=== PATIENT | female | born 1970 | race Two or more races ===

== ENCOUNTER 2022-04-07 14:57 | Inpatient (IN) | payer MEDICAID, OTHER ==
[~2022-04-07] VITALS: Ht 162.6 cm; Wt 101.2 kg
[~2022-04-07 14:57] MED LIST: AMOX1TAB16 PO; CLON.2P TD; HALO5TAB23 PO; HYDR25TA84 PO; PROZ20 PO
[2022-04-07 15:50] LABS: COVID AG,FIA SOURCE NASAL SWAB
[2022-04-07 15:55] LABS: BASOPHILS % (AUTO) 0.9 % (0.0-2.0); EOSINOPHILS % (AUTO) 1.2 % (1.0-6.0); HEMATOCRIT 35.5 % (36-46); HEMOGLOBIN 12.1 g/dL (12.0-16.0); LYMPHOCYTES # (AUTO) 1.2 K/uL (1.0-4.8); LYMPHOCYTES % (AUTO) 17.2 % (22.0-44.0); MEAN CORPUSCULAR HEMOGLOBIN 30.9 pg (26.0-34.0); MEAN CORPUSCULAR HGB CONC 34.1 G/dL (31.0-37.0); MEAN CORPUSCULAR VOLUME 91 fL (80-100); MONOCYTES # (AUTO) 0.5 K/uL (0.1-1.0); MONOCYTES % (AUTO) 6.9 % (2.0-9.0); NEUTROPHILS # (AUTO) 4.9 K/uL (1.8-7.7); NEUTROPHILS % (AUTO) 73.8 % (40.0-70.0); PLATELET COUNT (AUTO) 341 K/uL (150-450); RED BLOOD CELL COUNT(AUTO) 3.91 MIL/uL (4.00-5.20); RED CELL DISTRIBUTION WIDTH 12.6 % (11.5-14.5)
[2022-04-07 15:58] LABS: ANION GAP 11 mmol/L (8-16); CALCIUM, TOTAL 8.6 mg/dL (8.8-10.5); CARBON DIOXIDE 24 mmol/L (22-29); CHLORIDE 100 mmol/L (98-107); CREATININE 0.92 mg/dL (0.60-1.30); GLOMERULAR FILTR. RATE CALC > 60 mL/min (>60); GLUCOSE,RANDOM 172 mg/dL (70-110); POTASSIUM 3.5 mmol/L (3.5-5.1); SODIUM SERUM 135 mmol/L (136-145); UREA NITROGEN, BLOOD 15 mg/dL (7-18)
[2022-04-07] MEDS ORDERED: LORazepam 1 MG TABLET PO ONE (16:00)
[2022-04-07 16:04] LABS: ALANINE AMINOTRANSFERASE 19 U/L (12-78); ALBUMIN 3.2 g/dL (3.4-5.0); ALKALINE PHOSPHATASE 103 U/L (46-116); ASPARTATE AMINOTRANSFERASE 16 U/L (15-37); BILIRUBIN,TOTAL 0.2 mg/dL (0.1-1.0); TOTAL PROTEIN, SERUM 7.3 g/dL (6.4-8.2)
[2022-04-07 18:27] LABS: GLUCOSE,POINT OF CARE 201 MG/DL (70-110)
[2022-04-07] MEDS ORDERED: METF-1211 PO (19:07)
[2022-04-07] MEDS ORDERED: INSU3INS3 SQ (19:07)
[2022-04-07 22:25] VITALS: BP 173/100
[2022-04-07] MEDS ORDERED: DEXTROSE 50%-WATER 25 GM/50 ML SYRINGE IVP PRN (23:30)
[2022-04-07] MEDS ORDERED: PNEUMOCOCCAL VACCINE POLYVALENT 0.5 ML VIAL [PPSV23] IM. ONE (23:45)
[2022-04-08 06:03] VITALS: BP 145/81
[2022-04-08 06:21] LABS: GLUCOMETER DEV NAME(LOC) 3E.I 2; GLUCOSE,POINT OF CARE 179 MG/DL (70-110)
[2022-04-08] MEDS: MetFORMIN HCL 500 MG TABLET PO SCH ×2 (07:00→16:19)
[2022-04-08] MEDS: INSULIN LISPRO 100 UNITS/ML SQ PRN ×4 (07:08→21:05)
[2022-04-08 08:29] VITALS: BP 169/84
[2022-04-08 11:36] LABS: GLUCOMETER DEV NAME(LOC) 3E.I 2; GLUCOSE,POINT OF CARE 284 MG/DL (70-110)
[2022-04-08] MEDS: FLUoxetine HCL 20 MG CAPSULE PO SCH (12:29)
[2022-04-08 16:06] VITALS: BP 150/79
[2022-04-08] MEDS: HALOPERIDOL 10 MG TABLET PO SCH (16:19)
[2022-04-08 16:46] LABS: GLUCOMETER DEV NAME(LOC) 3E.I 2; GLUCOSE,POINT OF CARE 263 MG/DL (70-110)
[2022-04-08 21:46] LABS: GLUCOMETER DEV NAME(LOC) 3E.I 2; GLUCOSE,POINT OF CARE 234 MG/DL (70-110)
[2022-04-09 06:11] LABS: GLUCOMETER DEV NAME(LOC) 3E.I 2; GLUCOSE,POINT OF CARE 202 MG/DL (70-110)
[2022-04-09] MEDS: MetFORMIN HCL 500 MG TABLET PO SCH ×2 (07:07→17:02)
[2022-04-09] MEDS: INSULIN LISPRO 100 UNITS/ML SQ PRN ×4 (07:22→21:25)
[2022-04-09 08:44] VITALS: BP 140/83
[2022-04-09] MEDS: FLUoxetine HCL 20 MG CAPSULE PO SCH (09:23)
[2022-04-09] MEDS: HALOPERIDOL 10 MG TABLET PO SCH ×2 (09:23→17:02)
[2022-04-09 11:36] LABS: GLUCOMETER DEV NAME(LOC) 3E.I 2; GLUCOSE,POINT OF CARE 191 MG/DL (70-110)
[2022-04-09 16:12] VITALS: BP 150/91
[2022-04-09 17:26] LABS: GLUCOMETER DEV NAME(LOC) 3E.I 2; GLUCOSE,POINT OF CARE 220 MG/DL (70-110)
[2022-04-09 20:02] VITALS: BP 145/85
[2022-04-09 20:41] LABS: GLUCOMETER DEV NAME(LOC) 3E.I 2; GLUCOSE,POINT OF CARE 149 MG/DL (70-110)
[2022-04-10 05:41] LABS: GLUCOMETER DEV NAME(LOC) 3E.I 2; GLUCOSE,POINT OF CARE 208 MG/DL (70-110)
[2022-04-10] MEDS: MetFORMIN HCL 500 MG TABLET PO SCH ×2 (06:39→16:40)
[2022-04-10] MEDS: INSULIN LISPRO 100 UNITS/ML SQ PRN ×4 (06:39→21:11)
[2022-04-10 08:00] VITALS: BP 153/97
[2022-04-10] MEDS: HALOPERIDOL 10 MG TABLET PO SCH ×2 (09:01→16:40)
[2022-04-10] MEDS: FLUoxetine HCL 20 MG CAPSULE PO SCH (09:01)
[2022-04-10 11:41] LABS: GLUCOMETER DEV NAME(LOC) 3E.I 2; GLUCOSE,POINT OF CARE 199 MG/DL (70-110)
[2022-04-10 16:07] VITALS: BP 177/91
[2022-04-10 16:56] LABS: GLUCOMETER DEV NAME(LOC) 3E.I 2; GLUCOSE,POINT OF CARE 203 MG/DL (70-110)
[2022-04-10 20:36] LABS: GLUCOMETER DEV NAME(LOC) 3E.I 2; GLUCOSE,POINT OF CARE 181 MG/DL (70-110)
[2022-04-11 06:26] LABS: GLUCOMETER DEV NAME(LOC) 3E.I 2; GLUCOSE,POINT OF CARE 224 MG/DL (70-110)
[2022-04-11] MEDS: MetFORMIN HCL 500 MG TABLET PO SCH ×2 (06:43→16:40)
[2022-04-11] MEDS: INSULIN LISPRO 100 UNITS/ML SQ PRN ×4 (06:56→21:06)
[2022-04-11 08:00] VITALS: BP 168/95
[2022-04-11] MEDS: HALOPERIDOL 10 MG TABLET PO SCH ×2 (08:19→16:40)
[2022-04-11] MEDS: FLUoxetine HCL 20 MG CAPSULE PO SCH (08:19)
[2022-04-11 11:46] LABS: GLUCOMETER DEV NAME(LOC) 3E.I 2; GLUCOSE,POINT OF CARE 273 MG/DL (70-110)
[2022-04-11 16:16] LABS: GLUCOMETER DEV NAME(LOC) 3E.I 2; GLUCOSE,POINT OF CARE 192 MG/DL (70-110)
[2022-04-11 21:21] LABS: GLUCOMETER DEV NAME(LOC) 3E.I 2; GLUCOSE,POINT OF CARE 244 MG/DL (70-110)
[2022-04-12 06:21] LABS: GLUCOMETER DEV NAME(LOC) 3E.I 2; GLUCOSE,POINT OF CARE 204 MG/DL (70-110)
[2022-04-12] MEDS: MetFORMIN HCL 500 MG TABLET PO SCH ×2 (06:44→17:30)
[2022-04-12] MEDS: INSULIN LISPRO 100 UNITS/ML SQ PRN ×4 (06:45→21:06)
[2022-04-12] MEDS: HALOPERIDOL 10 MG TABLET PO SCH ×2 (08:50→17:00)
[2022-04-12] MEDS: FLUoxetine HCL 20 MG CAPSULE PO SCH (08:50)
[2022-04-12 11:51] LABS: GLUCOMETER DEV NAME(LOC) 3E.I 2; GLUCOSE,POINT OF CARE 196 MG/DL (70-110)
[2022-04-12 16:18] VITALS: BP 170/100
[2022-04-12 17:01] LABS: GLUCOMETER DEV NAME(LOC) 3E.I 2; GLUCOSE,POINT OF CARE 173 MG/DL (70-110)
[2022-04-12 20:51] LABS: GLUCOMETER DEV NAME(LOC) 3E.I 2; GLUCOSE,POINT OF CARE 242 MG/DL (70-110)
[2022-04-13 05:46] LABS: GLUCOMETER DEV NAME(LOC) 3E.I 2; GLUCOSE,POINT OF CARE 197 MG/DL (70-110)
[2022-04-13 06:22] LABS: COVID AG,FIA SOURCE NASAL SWAB
[2022-04-13] MEDS: INSULIN LISPRO 100 UNITS/ML SQ PRN ×4 (06:40→21:17)
[2022-04-13] MEDS: MetFORMIN HCL 500 MG TABLET PO SCH ×2 (06:40→16:27)
[2022-04-13 08:30] VITALS: BP 168/97
[2022-04-13] MEDS: HALOPERIDOL 10 MG TABLET PO SCH ×2 (09:26→16:27)
[2022-04-13] MEDS: FLUoxetine HCL 20 MG CAPSULE PO SCH (09:26)
[2022-04-13] MEDS ORDERED: DOCUSATE SODIUM 100 MG CAPSULE PO PRN (10:15)
[2022-04-13] MEDS ORDERED: MAGNESIUM HYDROXIDE SUSPENSION 30 ML UDCUP PO PRN (10:15)
[2022-04-13] MEDS ORDERED: NICOTINE 14 MG/24 HOUR PATCH TD PRN (10:15)
[2022-04-13] MEDS ORDERED: ALBUTEROL SULFATE HFA 90 MCG/PUFF 8 GM INHALER IH PRN (10:15)
[2022-04-13] MEDS ORDERED: CloNIDine HCL 0.1 MG TABLET PO PRN (10:15)
[2022-04-13] MEDS ORDERED: ACETAMINOPHEN 325 MG TABLET PO PRN (10:15)
[2022-04-13] MEDS ORDERED: GuaiFENesin/D-METHORPHAN [SUGAR-FREE] 200-20MG/10 ML SYRUP UDCUP PO PRN (10:15)
[2022-04-13] MEDS ORDERED: IBUPROFEN 400 MG TABLET PO PRN (10:15)
[2022-04-13] MEDS ORDERED: PETROLATUM,WHITE 28 GM JELLY TP PRN (10:15)
[2022-04-13] MEDS ORDERED: MAG HYDROX/AL HYDROX/SIMETH ES 30 ML SUSPENSION UDCUP PO PRN (10:15)
[2022-04-13] MEDS ORDERED: ONDANSETRON HCL 4 MG TABLET PO PRN (10:15)
[2022-04-13] MEDS ORDERED: LOPERAMIDE HCL 2 MG CAPSULE PO PRN (10:15)
[2022-04-13 11:22] VITALS: BP 149/87
[2022-04-13 11:41] LABS: GLUCOMETER DEV NAME(LOC) 3E.I 2; GLUCOSE,POINT OF CARE 256 MG/DL (70-110)
[2022-04-13 16:11] VITALS: BP 160/90
[2022-04-13 16:11] LABS: GLUCOMETER DEV NAME(LOC) 3E.I 2; GLUCOSE,POINT OF CARE 158 MG/DL (70-110)
[2022-04-13 21:27] LABS: GLUCOMETER DEV NAME(LOC) 3E.I 2; GLUCOSE,POINT OF CARE 243 MG/DL (70-110)
[2022-04-14 06:01] LABS: GLUCOMETER DEV NAME(LOC) 3E.I 2; GLUCOSE,POINT OF CARE 185 MG/DL (70-110)
[2022-04-14] MEDS: MetFORMIN HCL 500 MG TABLET PO SCH ×2 (06:48→17:09)
[2022-04-14] MEDS: INSULIN LISPRO 100 UNITS/ML SQ PRN ×4 (06:50→22:54)
[2022-04-14 06:59] LABS: BASOPHILS % (AUTO) 0.6 % (0.0-2.0); EOSINOPHILS % (AUTO) 0.8 % (1.0-6.0); HEMATOCRIT 35.8 % (36-46); HEMOGLOBIN 12.4 g/dL (12.0-16.0); LYMPHOCYTES # (AUTO) 1.6 K/uL (1.0-4.8); LYMPHOCYTES % (AUTO) 25.7 % (22.0-44.0); MEAN CORPUSCULAR HGB CONC 34.5 G/dL (31.0-37.0); MEAN CORPUSCULAR VOLUME 90 fL (80-100); MONOCYTES # (AUTO) 0.4 K/uL (0.1-1.0); MONOCYTES % (AUTO) 6.6 % (2.0-9.0); NEUTROPHILS # (AUTO) 4.1 K/uL (1.8-7.7); NEUTROPHILS % (AUTO) 66.3 % (40.0-70.0); PLATELET COUNT (AUTO) 342 K/uL (150-450); RED BLOOD CELL COUNT(AUTO) 3.99 MIL/uL (4.00-5.20); RED CELL DISTRIBUTION WIDTH 12.8 % (11.5-14.5)
[2022-04-14 07:19] LABS: CHOL/HDL RATIO 3.5 (3.9-5.7)
[2022-04-14 07:25] LABS: ALANINE AMINOTRANSFERASE 14 U/L (12-78); ALBUMIN 3.4 g/dL (3.4-5.0); ALKALINE PHOSPHATASE 101 U/L (46-116); ANION GAP 7 mmol/L (8-16); ASPARTATE AMINOTRANSFERASE 14 U/L (15-37); BILIRUBIN,TOTAL 0.2 mg/dL (0.1-1.0); CALCIUM, TOTAL 9.2 mg/dL (8.8-10.5); CARBON DIOXIDE 27 mmol/L (22-29); CHLORIDE 99 mmol/L (98-107); CREATININE 0.85 mg/dL (0.60-1.30); GLUCOSE,RANDOM 179 mg/dL (70-110); POTASSIUM 4.3 mmol/L (3.5-5.1); SODIUM SERUM 133 mmol/L (136-145); THYROID STIMULATING HORMONE 0.69 uIU/mL (0.36-3.74); TOTAL PROTEIN, SERUM 7.5 g/dL (6.4-8.2); UREA NITROGEN, BLOOD 14 mg/dL (7-18)
[2022-04-14 07:26] LABS: GLOMERULAR FILTR. RATE CALC > 60 mL/min (>60)
[2022-04-14 08:02] VITALS: BP 147/93
[2022-04-14] MEDS: FLUoxetine HCL 20 MG CAPSULE PO SCH (08:52)
[2022-04-14] MEDS: HALOPERIDOL 10 MG TABLET PO SCH ×2 (08:53→17:09)
[2022-04-14 11:51] LABS: GLUCOMETER DEV NAME(LOC) 3E.I 2; GLUCOSE,POINT OF CARE 192 MG/DL (70-110)
[2022-04-14 16:08] VITALS: BP 160/93
[2022-04-14 16:26] LABS: GLUCOMETER DEV NAME(LOC) 3E.I 2; GLUCOSE,POINT OF CARE 297 MG/DL (70-110)
[2022-04-14 20:30] LABS: GLUCOMETER DEV NAME(LOC) 3E.I 2; GLUCOSE,POINT OF CARE 218 MG/DL (70-110)
[2022-04-15 05:47] LABS: GLUCOMETER DEV NAME(LOC) 3E.I 2; GLUCOSE,POINT OF CARE 189 MG/DL (70-110)
[2022-04-15] MEDS: MetFORMIN HCL 500 MG TABLET PO SCH ×2 (06:37→17:05)
[2022-04-15] MEDS: INSULIN LISPRO 100 UNITS/ML SQ PRN ×4 (06:38→20:51)
[2022-04-15 08:00] VITALS: BP 151/82
[2022-04-15] MEDS: FLUoxetine HCL 20 MG CAPSULE PO SCH (08:40)
[2022-04-15] MEDS: HALOPERIDOL 10 MG TABLET PO SCH ×2 (08:41→17:05)
[2022-04-15 10:56] LABS: GLUCOMETER DEV NAME(LOC) 3E.I 2; GLUCOSE,POINT OF CARE 284 MG/DL (70-110)
[2022-04-15 16:00] VITALS: BP 150/92
[2022-04-15 16:06] LABS: GLUCOMETER DEV NAME(LOC) 3E.I 2; GLUCOSE,POINT OF CARE 168 MG/DL (70-110)
[2022-04-15 20:36] LABS: GLUCOMETER DEV NAME(LOC) 3E.I 2; GLUCOSE,POINT OF CARE 247 MG/DL (70-110)
[2022-04-16 06:11] LABS: GLUCOMETER DEV NAME(LOC) 3E.I 2; GLUCOSE,POINT OF CARE 169 MG/DL (70-110)
[2022-04-16] MEDS: MetFORMIN HCL 500 MG TABLET PO SCH ×2 (07:02→17:30)
[2022-04-16] MEDS: INSULIN LISPRO 100 UNITS/ML SQ PRN ×4 (07:03→21:09)
[2022-04-16 08:30] VITALS: BP 162/100
[2022-04-16] MEDS: HALOPERIDOL 10 MG TABLET PO SCH ×2 (09:16→17:30)
[2022-04-16] MEDS: FLUoxetine HCL 20 MG CAPSULE PO SCH (09:16)
[2022-04-16] MEDS: NICOTINE 14 MG/24 HOUR PATCH TD PRN (09:45)
[2022-04-16 11:36] LABS: GLUCOMETER DEV NAME(LOC) 3E.I 2; GLUCOSE,POINT OF CARE 218 MG/DL (70-110)
[2022-04-16 16:00] VITALS: BP 179/91
[2022-04-16 16:21] LABS: GLUCOMETER DEV NAME(LOC) 3E.I 2; GLUCOSE,POINT OF CARE 158 MG/DL (70-110)
[2022-04-16 21:16] LABS: GLUCOMETER DEV NAME(LOC) 3E.I 2; GLUCOSE,POINT OF CARE 208 MG/DL (70-110)
[2022-04-17 06:11] LABS: GLUCOMETER DEV NAME(LOC) 3E.I 2; GLUCOSE,POINT OF CARE 150 MG/DL (70-110)
[2022-04-17] MEDS: INSULIN LISPRO 100 UNITS/ML SQ PRN ×4 (06:50→21:44)
[2022-04-17] MEDS: MetFORMIN HCL 500 MG TABLET PO SCH ×2 (07:04→16:16)
[2022-04-17 08:00] VITALS: BP 163/92
[2022-04-17] MEDS: HALOPERIDOL 10 MG TABLET PO SCH ×2 (09:13→16:16)
[2022-04-17] MEDS: FLUoxetine HCL 20 MG CAPSULE PO SCH (09:14)
[2022-04-17 11:21] LABS: GLUCOMETER DEV NAME(LOC) 3E.I 2; GLUCOSE,POINT OF CARE 225 MG/DL (70-110)
[2022-04-17 16:00] VITALS: BP 180/100
[2022-04-17] MEDS: NICOTINE 14 MG/24 HOUR PATCH TD PRN (16:17)
[2022-04-17 16:51] LABS: GLUCOMETER DEV NAME(LOC) 3E.I 2; GLUCOSE,POINT OF CARE 200 MG/DL (70-110)
[2022-04-17 21:11] LABS: GLUCOMETER DEV NAME(LOC) 3E.I 2; GLUCOSE,POINT OF CARE 196 MG/DL (70-110)
[2022-04-18] MEDS: INSULIN LISPRO 100 UNITS/ML SQ PRN ×4 (06:06→20:52)
[2022-04-18 06:12] LABS: GLUCOMETER DEV NAME(LOC) 3E.I 2; GLUCOSE,POINT OF CARE 171 MG/DL (70-110)
[2022-04-18] MEDS: MetFORMIN HCL 500 MG TABLET PO SCH ×2 (06:28→16:31)
[2022-04-18] MEDS: FLUoxetine HCL 20 MG CAPSULE PO SCH (08:49)
[2022-04-18] MEDS: HALOPERIDOL 10 MG TABLET PO SCH ×2 (08:49→16:31)
[2022-04-18 09:17] VITALS: BP 165/79
[2022-04-18 12:06] LABS: GLUCOMETER DEV NAME(LOC) 3E.I 2; GLUCOSE,POINT OF CARE 266 MG/DL (70-110)
[2022-04-18 16:00] VITALS: BP 164/101
[2022-04-18 16:56] LABS: GLUCOMETER DEV NAME(LOC) 3E.I 2; GLUCOSE,POINT OF CARE 144 MG/DL (70-110)
[2022-04-18 21:06] LABS: GLUCOMETER DEV NAME(LOC) 3E.I 2; GLUCOSE,POINT OF CARE 194 MG/DL (70-110)
[2022-04-19 06:07] LABS: GLUCOMETER DEV NAME(LOC) 3E.I 2; GLUCOSE,POINT OF CARE 160 MG/DL (70-110)
[2022-04-19] MEDS: MetFORMIN HCL 500 MG TABLET PO SCH ×2 (06:55→16:50)
[2022-04-19] MEDS: INSULIN LISPRO 100 UNITS/ML SQ PRN ×4 (06:59→21:01)
[2022-04-19 08:00] VITALS: BP 161/95
[2022-04-19] MEDS: FLUoxetine HCL 20 MG CAPSULE PO SCH (08:30)
[2022-04-19] MEDS: HALOPERIDOL 10 MG TABLET PO SCH ×2 (08:30→16:49)
[2022-04-19] MEDS: NICOTINE 14 MG/24 HOUR PATCH TD PRN (08:36)
[2022-04-19 11:36] LABS: GLUCOMETER DEV NAME(LOC) 3E.I 2; GLUCOSE,POINT OF CARE 153 MG/DL (70-110)
[2022-04-19 16:48] VITALS: BP 135/64
[2022-04-19 16:56] LABS: GLUCOMETER DEV NAME(LOC) 3E.I 2; GLUCOSE,POINT OF CARE 272 MG/DL (70-110)
[2022-04-19 21:16] LABS: GLUCOMETER DEV NAME(LOC) 3E.I 2; GLUCOSE,POINT OF CARE 224 MG/DL (70-110)
[2022-04-20 06:11] LABS: GLUCOMETER DEV NAME(LOC) 3E.I 2; GLUCOSE,POINT OF CARE 154 MG/DL (70-110)
[2022-04-20 06:33] LABS: COVID AG,FIA SOURCE NASAL SWAB
[2022-04-20] MEDS: INSULIN LISPRO 100 UNITS/ML SQ PRN ×4 (06:41→20:49)
[2022-04-20] MEDS: MetFORMIN HCL 500 MG TABLET PO SCH ×2 (06:57→16:42)
[2022-04-20] MEDS: HALOPERIDOL 10 MG TABLET PO SCH ×2 (08:28→16:41)
[2022-04-20] MEDS: FLUoxetine HCL 20 MG CAPSULE PO SCH (08:28)
[2022-04-20 08:31] VITALS: BP 132/93
[2022-04-20] MEDS: NICOTINE 14 MG/24 HOUR PATCH TD PRN (08:34)
[2022-04-20 12:06] LABS: GLUCOMETER DEV NAME(LOC) 3E.I 2; GLUCOSE,POINT OF CARE 198 MG/DL (70-110)
[2022-04-20 16:21] VITALS: BP 140/82
[2022-04-20 16:26] LABS: GLUCOMETER DEV NAME(LOC) 3E.I 2; GLUCOSE,POINT OF CARE 166 MG/DL (70-110)
[2022-04-20 21:01] LABS: GLUCOMETER DEV NAME(LOC) 3E.I 2; GLUCOSE,POINT OF CARE 213 MG/DL (70-110)
[2022-04-21 06:12] LABS: GLUCOMETER DEV NAME(LOC) 3E.I 2; GLUCOSE,POINT OF CARE 165 MG/DL (70-110)
[2022-04-21] MEDS: MetFORMIN HCL 500 MG TABLET PO SCH ×2 (06:46→17:30)
[2022-04-21] MEDS: INSULIN LISPRO 100 UNITS/ML SQ PRN ×4 (06:47→21:04)
[2022-04-21] MEDS: HALOPERIDOL 10 MG TABLET PO SCH ×2 (07:58→16:33)
[2022-04-21] MEDS: FLUoxetine HCL 20 MG CAPSULE PO SCH (07:58)
[2022-04-21 08:02] VITALS: BP 149/95
[2022-04-21] MEDS: NICOTINE 14 MG/24 HOUR PATCH TD PRN (09:46)
[2022-04-21 11:46] LABS: GLUCOMETER DEV NAME(LOC) 3E.I 2; GLUCOSE,POINT OF CARE 221 MG/DL (70-110)
[2022-04-21 16:46] LABS: GLUCOMETER DEV NAME(LOC) 3E.I 2; GLUCOSE,POINT OF CARE 193 MG/DL (70-110)
[2022-04-21 21:16] LABS: GLUCOMETER DEV NAME(LOC) 3E.I 2; GLUCOSE,POINT OF CARE 212 MG/DL (70-110)
[2022-04-22 05:31] LABS: GLUCOMETER DEV NAME(LOC) 3E.I 2; GLUCOSE,POINT OF CARE 169 MG/DL (70-110)
[2022-04-22] MEDS: MetFORMIN HCL 500 MG TABLET PO SCH ×2 (06:53→16:28)
[2022-04-22] MEDS: INSULIN LISPRO 100 UNITS/ML SQ PRN ×3 (07:03→21:44)
[2022-04-22 08:02] VITALS: BP 146/86
[2022-04-22] MEDS: HALOPERIDOL 10 MG TABLET PO SCH ×2 (08:06→16:28)
[2022-04-22] MEDS: FLUoxetine HCL 20 MG CAPSULE PO SCH (08:06)
[2022-04-22] MEDS: NICOTINE 14 MG/24 HOUR PATCH TD PRN (09:39)
[2022-04-22 11:36] LABS: GLUCOMETER DEV NAME(LOC) 3E.I 2; GLUCOSE,POINT OF CARE 251 MG/DL (70-110)
[2022-04-22 16:32] VITALS: BP 170/98
[2022-04-22 17:26] LABS: GLUCOMETER DEV NAME(LOC) 3E.I 2; GLUCOSE,POINT OF CARE 134 MG/DL (70-110)
[2022-04-22 21:52] LABS: GLUCOMETER DEV NAME(LOC) 3E.I 2; GLUCOSE,POINT OF CARE 200 MG/DL (70-110)
[2022-04-23 05:52] LABS: GLUCOMETER DEV NAME(LOC) 3E.I 2; GLUCOSE,POINT OF CARE 162 MG/DL (70-110)
[2022-04-23] MEDS: INSULIN LISPRO 100 UNITS/ML SQ PRN ×3 (06:41→17:24)
[2022-04-23] MEDS: MetFORMIN HCL 500 MG TABLET PO SCH ×2 (06:50→16:33)
[2022-04-23] MEDS: HALOPERIDOL 10 MG TABLET PO SCH ×2 (08:48→16:33)
[2022-04-23] MEDS: FLUoxetine HCL 20 MG CAPSULE PO SCH (08:48)
[2022-04-23 09:37] VITALS: BP 150/100
[2022-04-23 11:36] LABS: GLUCOMETER DEV NAME(LOC) 3E.I 2; GLUCOSE,POINT OF CARE 183 MG/DL (70-110)
[2022-04-23 16:18] VITALS: BP 130/100
[2022-04-23 16:46] LABS: GLUCOMETER DEV NAME(LOC) 3E.I 2; GLUCOSE,POINT OF CARE 207 MG/DL (70-110)
[2022-04-23 21:16] LABS: GLUCOMETER DEV NAME(LOC) 3E.I 2; GLUCOSE,POINT OF CARE 118 MG/DL (70-110)
[2022-04-24 05:57] LABS: GLUCOMETER DEV NAME(LOC) 3E.I 2; GLUCOSE,POINT OF CARE 158 MG/DL (70-110)
[2022-04-24] MEDS: MetFORMIN HCL 500 MG TABLET PO SCH (06:36)
[2022-04-24] MEDS: INSULIN LISPRO 100 UNITS/ML SQ PRN ×2 (06:36→11:30)
[2022-04-24 08:06] VITALS: BP 153/98
[2022-04-24] MEDS: FLUoxetine HCL 20 MG CAPSULE PO SCH (08:52)
[2022-04-24] MEDS: HALOPERIDOL 10 MG TABLET PO SCH (08:52)
[2022-04-24] MEDS: NICOTINE 14 MG/24 HOUR PATCH TD PRN (09:11)
[2022-04-24] MEDS ORDERED: HALO10TA21 PO (10:41)
[2022-04-24] MEDS ORDERED: METF-1211 PO ×2 (10:41→12:08)
[2022-04-24] MEDS ORDERED: PROZ20 PO (10:41)
[2022-04-24 11:41] LABS: GLUCOMETER DEV NAME(LOC) 3E.I 2; GLUCOSE,POINT OF CARE 163 MG/DL (70-110)
== END 2022-04-24 15:00 | disposition home or self-care (01) | DRG 750 ==
LOC: EMS 15:01 → 3EI 17:53
PROVIDERS: ADMIT Psychiatry & Neurology Psychiatry; ATTEND Psychiatry & Neurology Psychiatry
DX: F25.0 Schizoaffective disorder, bipolar type (principal); E87.1 Hypo-osmolality and hyponatremia; R45.851 Suicidal ideations; E11.9 Type 2 diabetes mellitus without complications; E66.9 Obesity, unspecified; I10 Essential (primary) hypertension; Z20.822 Contact with and (suspected) exposure to COVID-19; F15.10 Other stimulant abuse, uncomplicated; F17.200 Nicotine dependence, unspecified, uncomplicated; Z79.899 Other long term (current) drug therapy; Z68.38 Body mass index [BMI] 38.0-38.9, adult
CPT/HCPCS: 80053; 80061; 82962; 83036; 84443; 85025; 87081; 99285; G0480

== ENCOUNTER 2022-05-10 14:04 | Emergency (ER) | payer MEDICAID, OTHER ==
[~2022-05-10] VITALS: Ht 160 cm; Wt 90.9 kg
[~2022-05-10 14:04] MED LIST changes: -AMOX1TAB16 PO; -CLON.2P TD; +HALO10TA21 PO; -HALO5TAB23 PO; -HYDR25TA84 PO; +METF-1211 PO
[2022-05-10] MEDS ORDERED: SODIUM CHLORIDE 0.9% 1,000 ML IV ONE (16:00)
[2022-05-10] MEDS ORDERED: INSULIN REGULAR, HUMAN 100 UNITS/ML IVP ONE ×2 (16:00→20:15)
[2022-05-10 17:29] LABS: BASOPHILS % (AUTO) 0.5 % (0.0-2.0); EOSINOPHILS % (AUTO) 1.2 % (1.0-6.0); HEMATOCRIT 35.7 % (36-46); HEMOGLOBIN 12.1 g/dL (12.0-16.0); LYMPHOCYTES # (AUTO) 2.2 K/uL (1.0-4.8); LYMPHOCYTES % (AUTO) 30.1 % (22.0-44.0); MEAN CORPUSCULAR HGB CONC 33.8 G/dL (31.0-37.0); MEAN CORPUSCULAR VOLUME 92 fL (80-100); MONOCYTES # (AUTO) 0.4 K/uL (0.1-1.0); MONOCYTES % (AUTO) 5.7 % (2.0-9.0); NEUTROPHILS # (AUTO) 4.5 K/uL (1.8-7.7); NEUTROPHILS % (AUTO) 62.5 % (40.0-70.0); PLATELET COUNT (AUTO) 270 K/uL (150-450); RED BLOOD CELL COUNT(AUTO) 3.89 MIL/uL (4.00-5.20); RED CELL DISTRIBUTION WIDTH 12.2 % (11.5-14.5)
[2022-05-10 17:38] LABS: COVID AG,FIA SOURCE NASAL SWAB
[2022-05-10 17:55] LABS: ALANINE AMINOTRANSFERASE 14 U/L (12-78); ALBUMIN 3.4 g/dL (3.4-5.0); ALKALINE PHOSPHATASE 99 U/L (46-116); ANION GAP 6 mmol/L (8-16); ASPARTATE AMINOTRANSFERASE 10 U/L (15-37); CALCIUM, TOTAL 9.1 mg/dL (8.8-10.5); CARBON DIOXIDE 27 mmol/L (22-29); CHLORIDE 101 mmol/L (98-107); CREATININE 0.91 mg/dL (0.60-1.30); GLOMERULAR FILTR. RATE CALC > 60 mL/min (>60); POTASSIUM 4.7 mmol/L (3.5-5.1); SODIUM SERUM 134 mmol/L (136-145); TOTAL PROTEIN, SERUM 7.3 g/dL (6.4-8.2); UREA NITROGEN, BLOOD 16 mg/dL (7-18)
[2022-05-10 17:57] LABS: GLUCOSE,RANDOM 449 mg/dL (70-110)
[2022-05-10 18:09] LABS: BILIRUBIN,TOTAL < 0.1 mg/dL (0.1-1.0)
[2022-05-10 18:16] LABS: ACETONE,BLOOD NEGATIVE (NEGATIVE)
[2022-05-10 18:26] LABS: GLUCOSE,POINT OF CARE 245 MG/DL (70-110)
[2022-05-10 20:05] LABS: GLUCOSE,POINT OF CARE 274 MG/DL (70-110)
[2022-05-10 20:29] LABS: APPEARANCE,URINE CLEAR (CLEAR); BILIRUBIN,URINE NEGATIVE (NEGATIVE); GLUCOSE, URINE (UA) >=1000 mg/dL (NEGATIVE); KETONES,URINE NEGATIVE (NEGATIVE); LEUKOCYTE ESTERASE ,URINE MODERATE (NEGATIVE); NITRATE,URINE NEGATIVE (NEGATIVE); OCCULT BLOOD,URINE NEGATIVE (NEGATIVE); PH,URINE 6.5 (5.0-8.0); PROTEIN,URINE NEGATIVE (NEGATIVE); SPECIFIC GRAVITIY, URINE 1.011 (1.003-1.030); UROBILINOGEN,URINE <=1.0 mg/dL (<=1.0)
[2022-05-10 20:42] LABS: AMPHET/METH SCREEN,URINE NEGATIVE (NEGATIVE); BACTERIA,URINE Rare /HPF (None Seen); BARBITURATE SCREEN, URINE NEGATIVE (NEGATIVE); BENZODIAZEPINES SCREEN,URINE NEGATIVE (NEGATIVE); CANNABINOID SCREEN,URINE POSITIVE (NEGATIVE); COCAINE SCREEN,URINE NEGATIVE (NEGATIVE); METHADONE SCREEN, URINE NEGATIVE (NEGATIVE); OPIATE SCREEN,URINE NEGATIVE (NEGATIVE); RBC,URINE 0-2 /HPF (0-2); SQUAMOUS EPITHELIAL CELL,UR Few /LPF (None Seen)
[2022-05-10 20:43] LABS: PHENCYCLIDINE SCREEN,URINE NEGATIVE (NEGATIVE)
[2022-05-10 21:16] LABS: GLUCOSE,POINT OF CARE 234 MG/DL (70-110)
[2022-05-10 22:22] VITALS: BP 148/98
== END 2022-05-10 22:00 | disposition home or self-care (01) ==
LOC: EMS 14:06
DX: E11.65 Type 2 diabetes mellitus with hyperglycemia (principal); F31.9 Bipolar disorder, unspecified; E11.9 Type 2 diabetes mellitus without complications; I10 Essential (primary) hypertension; F17.210 Nicotine dependence, cigarettes, uncomplicated; Z86.19 Personal history of other infectious and parasitic diseases; Z98.890 Other specified postprocedural states; Z20.822 Contact with and (suspected) exposure to COVID-19
CPT/HCPCS: 99285; 96374; 96361; 87426; 80053; 82009; 82962; 85025; 36415; 87086; 93005; 96376; 80307; 81001; G0480; J1815; J7030